=== PATIENT | female | born 1935 | race Caucasian/White ===

== ENCOUNTER → 2019-02-06 | Outpatient (REF) | payer MEDICARE ==
[2019-02-06 14:23] LABS: BASO # 0.1 10^3/uL (0.0-0.2); EOS # 0.3 10^3/uL (0.0-0.50); EOS % 2.7 % (0.0-3.0); HEMATOCRIT 36.5 % (36.0-47.0); LYMPH # 2.4 10^3/uL (1.5-4.5); LYMPH % 25.5 % (24.0-44.0); MEAN CORPUSCULAR HEMOGLOBIN 28.1 pg (27.0-33.0); MEAN CORPUSCULAR HGB CONC 30.1 g/dl (32.0-36.5); MEAN CORPUSCULAR VOLUME 93.1 fl (80.0-96.0); MONO # 1.2 10^3/uL (0.0-0.8); MONO % 12.7 % (0.0-5.0); NEUTROPHILS # 5.4 10^3/uL (1.8-7.7); NEUTROPHILS % 57.5 % (36.0-66.0); PLATELET COUNT, AUTOMATED 323 10^3/uL (150-450); RED BLOOD COUNT 3.92 10^6/uL (4.00-5.40); WHITE BLOOD COUNT 9.4 10^3/uL (4.0-10.0)
[2019-02-06 14:34] LABS: ALBUMIN 2.8 GM/DL (3.2-5.2); BILIRUBIN,TOTAL 0.5 MG/DL (0.2-1.0); CALCIUM LEVEL 9.1 MG/DL (8.8-10.2); CREATININE FOR GFR 1.2 MG/DL (0.55-1.30); GLOMERULAR FILTRATION RATE 45.9 (>32); POTASSIUM SERUM 4.9 MEQ/L (3.5-5.1); TOTAL PROTEIN 6.9 GM/DL (6.4-8.2)
== END ==
LOC: M LABDRAW1 09:08
PROVIDERS: ATTEND Nurse Practitioner Adult Health
DX: A41.9 Sepsis, unspecified organism (principal); R60.0 Localized edema

== ENCOUNTER → 2024-03-30 | Outpatient (REF) ==
[2024-03-30 12:01] LABS: HEMATOCRIT 40.6 % (36.0-47.0); HEMOGLOBIN 12.7 g/dl (12.0-15.5); MEAN CORPUSCULAR HEMOGLOBIN 30.3 pg (27.0-33.0); MEAN CORPUSCULAR HGB CONC 31.3 g/dl (32.0-36.5); MEAN CORPUSCULAR VOLUME 96.9 fl (80.0-96.0); PLATELET COUNT, AUTOMATED 319 10^3/uL (150-450); RED BLOOD COUNT 4.19 10^6/uL (4.00-5.40); WHITE BLOOD COUNT 8.2 10^3/uL (4.0-10.0)
[2024-03-30 12:41] LABS: BLOOD UREA NITROGEN 19 MG/DL (9-23); CALCIUM LEVEL 8.5 MG/DL (8.3-10.6); CARBON DIOXIDE LEVEL 21 MMOL/L (20-31); CHLORIDE LEVEL 105 MMOL/L (98-107); CREATININE FOR GFR 0.79 MG/DL (0.55-1.30); GLOMERULAR FILTRATION RATE > 60.0 (>32); GLUCOSE, FASTING 79 MG/DL (74-106); POTASSIUM SERUM 5.2 MMOL/L (3.5-5.1); SODIUM LEVEL 137 MMOL/L (136-145)
== END ==
PROVIDERS: ATTEND Physician Assistant
DX: N39.0 Urinary tract infection, site not specified (principal); Z16.21 Resistance to vancomycin

== ENCOUNTER → 2024-03-31 | Outpatient (REF) | PROVIDERS: ATTEND Physician Assistant | DX: L97.909 Non-pressure chronic ulcer of unspecified part of unspecified lower leg with unspecified severity (principal); Z53.8 Procedure and treatment not carried out for other reasons ==

== ENCOUNTER → 2024-03-31 | Outpatient (REF) | PROVIDERS: ATTEND Internal Medicine | DX: M85.832 Other specified disorders of bone density and structure, left forearm (principal); M79.89 Other specified soft tissue disorders ==

== ENCOUNTER → 2024-04-01 | Outpatient (REF) ==
[2024-04-01 11:24] LABS: HEMATOCRIT 37.9 % (36.0-47.0); MEAN CORPUSCULAR HEMOGLOBIN 30.2 pg (27.0-33.0); MEAN CORPUSCULAR HGB CONC 31.7 g/dl (32.0-36.5); MEAN CORPUSCULAR VOLUME 95.2 fl (80.0-96.0); PLATELET COUNT, AUTOMATED 515 10^3/uL (150-450); RED BLOOD COUNT 3.98 10^6/uL (4.00-5.40); WHITE BLOOD COUNT 8.6 10^3/uL (4.0-10.0)
[2024-04-01 11:33] LABS: ERYTHROCYTE SEDIMENTATION RATE 121 mm/hr (0-30)
[2024-04-01 11:51] LABS: BLOOD UREA NITROGEN 22 MG/DL (9-23); CALCIUM LEVEL 9.2 MG/DL (8.3-10.6); CARBON DIOXIDE LEVEL 28 MMOL/L (20-31); CHLORIDE LEVEL 106 MMOL/L (98-107); CREATININE FOR GFR 0.81 MG/DL (0.55-1.30); GLOMERULAR FILTRATION RATE > 60.0 (>32); GLUCOSE, FASTING 84 MG/DL (74-106); POTASSIUM SERUM 4.5 MMOL/L (3.5-5.1); SODIUM LEVEL 144 MMOL/L (136-145)
== END ==
PROVIDERS: ATTEND Physician Assistant
DX: L97.909 Non-pressure chronic ulcer of unspecified part of unspecified lower leg with unspecified severity (principal)

== ENCOUNTER → 2024-04-06 | Outpatient (REF) ==
[2024-04-06 09:22] LABS: HEMOGLOBIN 11.4 g/dl (12.0-15.5); MEAN CORPUSCULAR HEMOGLOBIN 29.8 pg (27.0-33.0); MEAN CORPUSCULAR HGB CONC 31.7 g/dl (32.0-36.5); MEAN CORPUSCULAR VOLUME 94.2 fl (80.0-96.0); PLATELET COUNT, AUTOMATED 225 10^3/uL (150-450); RED BLOOD COUNT 3.82 10^6/uL (4.00-5.40); WHITE BLOOD COUNT 8.4 10^3/uL (4.0-10.0)
[2024-04-06 09:49] LABS: BLOOD UREA NITROGEN 27 MG/DL (9-23); CALCIUM LEVEL 8.6 MG/DL (8.3-10.6); CARBON DIOXIDE LEVEL 32 MMOL/L (20-31); CHLORIDE LEVEL 102 MMOL/L (98-107); CREATININE FOR GFR 0.68 MG/DL (0.55-1.30); GLOMERULAR FILTRATION RATE > 60.0 (>32); GLUCOSE, FASTING 63 MG/DL (74-106); POTASSIUM SERUM 4.3 MMOL/L (3.5-5.1); SODIUM LEVEL 140 MMOL/L (136-145)
== END ==
PROVIDERS: ATTEND Physician Assistant
DX: N39.0 Urinary tract infection, site not specified (principal); Z16.21 Resistance to vancomycin

== ENCOUNTER → 2024-04-15 | Outpatient (REF) ==
[2024-04-15 10:16] LABS: HEMATOCRIT 34.8 % (36.0-47.0); HEMOGLOBIN 10.8 g/dl (12.0-15.5); MEAN CORPUSCULAR HEMOGLOBIN 29.5 pg (27.0-33.0); MEAN CORPUSCULAR VOLUME 95.1 fl (80.0-96.0); PLATELET COUNT, AUTOMATED 397 10^3/uL (150-450); RED BLOOD COUNT 3.66 10^6/uL (4.00-5.40); WHITE BLOOD COUNT 9.7 10^3/uL (4.0-10.0)
[2024-04-15 10:45] LABS: BLOOD UREA NITROGEN 25 MG/DL (9-23); CALCIUM LEVEL 8.9 MG/DL (8.3-10.6); CARBON DIOXIDE LEVEL 28 MMOL/L (20-31); CHLORIDE LEVEL 109 MMOL/L (98-107); CREATININE FOR GFR 0.69 MG/DL (0.55-1.30); GLOMERULAR FILTRATION RATE > 60.0 (>32); GLUCOSE, FASTING 90 MG/DL (74-106); POTASSIUM SERUM 4.8 MMOL/L (3.5-5.1); SODIUM LEVEL 145 MMOL/L (136-145)
== END ==
PROVIDERS: ATTEND Physician Assistant
DX: N39.0 Urinary tract infection, site not specified (principal); Z16.21 Resistance to vancomycin

== ENCOUNTER → 2024-05-06 | Outpatient (CLI) | payer MEDICARE | LOC: M SOG 07:49 | PROVIDERS: ATTEND Orthopaedic Surgery | DX: M25.561 Pain in right knee (principal); M17.11 Unilateral primary osteoarthritis, right knee ==

== ENCOUNTER → 2024-05-07 | Outpatient (REF) ==
[2024-05-07 19:48] LABS: C REACTIVE PROTEIN QUANTITATIV 13.8 MG/DL (<1.0)
[2024-05-07 19:49] LABS: URIC ACID 8.2 MG/DL (3.1-7.8)
== END ==
PROVIDERS: ATTEND Physician Assistant
DX: R22.32 Localized swelling, mass and lump, left upper limb (principal)

== ENCOUNTER → 2024-05-08 | Outpatient (REF) | PROVIDERS: ATTEND Internal Medicine | DX: M19.042 Primary osteoarthritis, left hand (principal); M79.89 Other specified soft tissue disorders ==

== ENCOUNTER → 2024-05-14 | Outpatient (REF) | PROVIDERS: ATTEND Internal Medicine | DX: R06.02 Shortness of breath (principal) ==

== ENCOUNTER → 2024-05-17 | Outpatient (REF) ==
[~2024-05-17] MED LIST: ACET-897 PO; ALLO100T PO; ATOR40TA75 PO; BISA10SU27 PR; CALC500T61 PO; CALC600T85 PO; CALC800P PO; CENT1TAB PO; CETI-24 PO; DICL100G10 TOP; ELIQ5TAB PO; FLEEENE12 PR; FURO20TA2 PO; LASI40TA9 PO; LOPE1CAP5 PO; MAGN400T2 PO; METH-1164 PO; METO75TA PO; MOM30SS2 PO; OMEG-28 PO; OMEP-173 PO; PEPT262S PO; POTA10CA70 PO; PREG200C2 PO; ROPI5TAB19 PO; TRIA1CR80 TOP; VITA100054 PO
== END ==
LOC: M LAB REF 18:15
PROVIDERS: ATTEND Internal Medicine
DX: R19.7 Diarrhea, unspecified (principal)

== ENCOUNTER 2024-05-18 10:44 | Observation (INO) | payer MEDICARE ==
[~2024-05-18] VITALS: Ht 167.6 cm; Wt 113.8 kg
[~2024-05-18 10:44] MED LIST changes: -ACET-897 PO; -ALLO100T PO; -ATOR40TA75 PO; -BISA10SU27 PR; -CALC500T61 PO; -CALC600T85 PO; -CALC800P PO; -CENT1TAB PO; -CETI-24 PO; -DICL100G10 TOP; -ELIQ5TAB PO; -FLEEENE12 PR; -FURO20TA2 PO; -LOPE1CAP5 PO; -MAGN400T2 PO; -METH-1164 PO; -METO75TA PO; -MOM30SS2 PO; -OMEG-28 PO; -OMEP-173 PO; -PEPT262S PO; -POTA10CA70 PO; -PREG200C2 PO; -ROPI5TAB19 PO; -TRIA1CR80 TOP; -VITA100054 PO
[2024-05-18 11:50] LABS: BASO % 0.1 % (0.0-1.0); EOS # 0.1 10^3/uL (0.0-0.5); HEMATOCRIT 34.3 % (36.0-47.0); HEMOGLOBIN 10.7 g/dl (12.0-15.5); LYMPH # 1.5 10^3/uL (1.5-5.0); LYMPH % 10.3 % (24.0-44.0); MEAN CORPUSCULAR HEMOGLOBIN 29.2 pg (27.0-33.0); MEAN CORPUSCULAR HGB CONC 31.2 g/dl (32.0-36.5); MEAN CORPUSCULAR VOLUME 93.5 fl (80.0-96.0); MONO # 1.4 10^3/uL (0.0-0.8); MONO % 9.8 % (2.0-8.0); NEUTROPHILS # 11.3 10^3/uL (1.5-8.5); NEUTROPHILS % 78.3 % (36.0-66.0); PLATELET COUNT, AUTOMATED 354 10^3/uL (150-450); RED BLOOD COUNT 3.67 10^6/uL (4.00-5.40); WHITE BLOOD COUNT 14.4 10^3/uL (4.0-10.0)
[2024-05-18 12:06] LABS: ALBUMIN 2.4 G/DL (3.2-5.2); BILIRUBIN,DIRECT 0.2 MG/DL (<0.4); BILIRUBIN,TOTAL 0.7 MG/DL (0.3-1.2); CALCIUM LEVEL 8.9 MG/DL (8.3-10.6); CREATININE FOR GFR 0.97 MG/DL (0.55-1.30); POTASSIUM SERUM 4.3 MMOL/L (3.5-5.1)
[2024-05-18 12:13] LABS: INR 1.29; PROTHROMBIN TIME 15.7 SECONDS (12.5-14.5)
[2024-05-18] MEDS ORDERED: ISOVUE-370 76% 100ML VIAL As Ordered ONE (13:01)
[2024-05-18] MEDS: NS 500 ML IV ONE (13:09)
[2024-05-18] MEDS ORDERED: ALLO100T PO (13:14)
[2024-05-18] MEDS ORDERED: CALC600T85 PO (13:14)
[2024-05-18] MEDS ORDERED: METO75TA PO (13:14)
[2024-05-18] MEDS ORDERED: ATOR40TA75 PO (13:14)
[2024-05-18] MEDS ORDERED: DICL100G10 TOP (13:14)
[2024-05-18] MEDS ORDERED: TRIA1CR80 TOP (13:14)
[2024-05-18] MEDS ORDERED: CALC800P PO (13:14)
[2024-05-18] MEDS ORDERED: MAGN400T2 PO (13:14)
[2024-05-18] MEDS ORDERED: CENT1TAB PO (13:14)
[2024-05-18] MEDS ORDERED: OMEG-28 PO (13:14)
[2024-05-18] MEDS ORDERED: VITA100054 PO (13:14)
[2024-05-18] MEDS ORDERED: METH-1164 PO (13:14)
[2024-05-18] MEDS ORDERED: ELIQ5TAB PO (13:14)
[2024-05-18] MEDS ORDERED: CETI-24 PO (13:14)
[2024-05-18] MEDS ORDERED: PREG200C2 PO (13:14)
[2024-05-18] MEDS ORDERED: POTA10CA70 PO (13:14)
[2024-05-18] MEDS ORDERED: FURO20TA2 PO (13:14)
[2024-05-18] MEDS ORDERED: OMEP-173 PO (13:14)
[2024-05-18] MEDS ORDERED: LOPE1CAP5 PO ×2 (13:23)
[2024-05-18] MEDS ORDERED: BISA10SU27 PR (13:23)
[2024-05-18] MEDS ORDERED: MOM30SS2 PO (13:23)
[2024-05-18] MEDS ORDERED: ACET-897 PO (13:23)
[2024-05-18] MEDS ORDERED: FLEEENE12 PR (13:23)
[2024-05-18] MEDS ORDERED: ROPI5TAB19 PO (13:23)
[2024-05-18] MEDS ORDERED: CALC500T61 PO (13:25)
[2024-05-18] MEDS ORDERED: HOME MED LIST COMPLETE! XX SCH (13:30)
[2024-05-18 17:03] LABS: C REACTIVE PROTEIN QUANTITATIV 16.7 MG/DL (<1.0)
[2024-05-18 17:17] LABS: PROCALCITONIN 0.09 ng/ml
[2024-05-18 17:46] VITALS: BP 116/60; O2SAT 94
[2024-05-18] MEDS: ATORVASTATIN 20 MG TAB PO SCH (17:46)
[2024-05-18] MEDS: CETIRIZINE (ZyrTEC) 10 MG TAB PO SCH (17:46)
[2024-05-18 18:45] VITALS: BP 97/74; TEMP 97.9; O2SAT 92
[2024-05-18] MEDS ORDERED: NYSTATIN 100,000 UNITS/GM TOPICAL PWD 15GM TOP PRN (19:05)
[2024-05-18 19:46] VITALS: BP 97/59; TEMP 97.7; O2SAT 97
[2024-05-18] MEDS: METOPROLOL TART 25 MG TABLET PO SCH (20:20)
[2024-05-18] MEDS: PREGABALIN 100 MG CAP (LYRICA) PO SCH (20:27)
[2024-05-18] MEDS: methocarbamoL 500 MG TAB PO SCH (20:27)
[2024-05-18] MEDS: ACETAMINOPHEN 500 MG TAB PO SCH (20:27)
[2024-05-18] MEDS: rOPINIRole 0.25 MG TAB(REQUIP) PO SCH (20:27)
[2024-05-18] MEDS: TRIAMCINOLONE ACET 0.1% CREAM 15GM TOP SCH (20:28)
[2024-05-18] MEDS: VITAMIN A & D OINTMENT 42.5GM TOP SCH (20:28)
[2024-05-19 03:43] VITALS: BP 95/59; TEMP 96.6; O2SAT 94
[2024-05-19 07:43] LABS: HEMATOCRIT 34.4 % (36.0-47.0); HEMOGLOBIN 10.9 g/dl (12.0-15.5); MEAN CORPUSCULAR HEMOGLOBIN 29.8 pg (27.0-33.0); MEAN CORPUSCULAR HGB CONC 31.7 g/dl (32.0-36.5); PLATELET COUNT, AUTOMATED 285 10^3/uL (150-450); RED BLOOD COUNT 3.66 10^6/uL (4.00-5.40); WHITE BLOOD COUNT 11.6 10^3/uL (4.0-10.0)
[2024-05-19 08:11] LABS: BLOOD UREA NITROGEN 23 MG/DL (9-23); CALCIUM LEVEL 8.6 MG/DL (8.3-10.6); CARBON DIOXIDE LEVEL 27 MMOL/L (20-31); CHLORIDE LEVEL 107 MMOL/L (98-107); CREATININE FOR GFR 0.84 MG/DL (0.55-1.30); GLOMERULAR FILTRATION RATE > 60.0 (>32); GLUCOSE, FASTING 92 MG/DL (74-106); POTASSIUM SERUM 3.9 MMOL/L (3.5-5.1); SODIUM LEVEL 143 MMOL/L (136-145)
[2024-05-19] MEDS: allopurinoL 100 MG TAB PO SCH (08:38)
[2024-05-19] MEDS: OMEPRAZOLE 20MG CAP PO SCH (08:39)
[2024-05-19] MEDS ORDERED: POTASSIUM CHLORIDE 10MEQ SR TABLET PO SCH (09:00)
[2024-05-19] MEDS ORDERED: FUROSEMIDE 20 MG TAB PO SCH (09:00)
[2024-05-19] MEDS ORDERED: PEPT262S PO (11:32)
[2024-05-19 12:31] VITALS: BP 88/52; TEMP 97.5; O2SAT 92
[2024-05-19] MEDS: PINK BISMUTH SUSP 524MG/30ML ORAL SYRINGE PO SCH (13:15)
[2024-05-19 20:00] VITALS: BP 102/58; TEMP 97.9; O2SAT 92
[2024-05-20 04:00] VITALS: BP 138/78; TEMP 97.7; O2SAT 97
[2024-05-20] MEDS: LOPERAMIDE 2 MG CAPLET PO ONE (08:08)
[2024-05-20 10:43] VITALS: BP 104/64
== END 2024-05-20 11:45 ==
LOC: M ED 10:44 → M ED INP 16:31 → M MS5PR 18:25
PROVIDERS: ADMIT Internal Medicine; ATTEND Student in an Organized Health Care Education/Training Program
DX: A08.39 Other viral enteritis (principal); K92.2 Gastrointestinal hemorrhage, unspecified; A04.71 Enterocolitis due to Clostridium difficile, recurrent; Z79.01 Long term (current) use of anticoagulants; D62 Acute posthemorrhagic anemia; I48.0 Paroxysmal atrial fibrillation; K86.2 Cyst of pancreas; I50.9 Heart failure, unspecified; I73.9 Peripheral vascular disease, unspecified; E78.5 Hyperlipidemia, unspecified; I11.9 Hypertensive heart disease without heart failure; E66.01 Morbid (severe) obesity due to excess calories; D68.61 Antiphospholipid syndrome; Z79.899 Other long term (current) drug therapy; Z88.8 Allergy status to other drugs, medicaments and biological substances; Z88.1 Allergy status to other antibiotic agents
CPT/HCPCS: 36415; 71045; 74177; 80048; 80076; 83605; 83690; 83880; 84145; 85025; 85027; 85610; 86140; 86850; 86900; 86901; 87426; 93005; 93041; 94760; 96374; 99285; G0378; Q9967

== ENCOUNTER → 2024-05-20 | Outpatient (REF) ==
[~2024-05-20] MED LIST changes: +ACET-897 PO; +ALLO100T PO; +ATOR40TA75 PO; +BISA10SU27 PR; +CALC500T61 PO; +CALC600T85 PO; +CALC800P PO; +CENT1TAB PO; +CETI-24 PO; +DICL100G10 TOP; +ELIQ5TAB PO; +FLEEENE12 PR; +FURO20TA2 PO; +LOPE1CAP5 PO; +MAGN400T2 PO; +METH-1164 PO; +METO75TA PO; +MOM30SS2 PO; +OMEG-28 PO; +OMEP-173 PO; +PEPT262S PO; +POTA10CA70 PO; +PREG200C2 PO; +ROPI5TAB19 PO; +TRIA1CR80 TOP; +VITA100054 PO
== END ==
PROVIDERS: ATTEND Internal Medicine
DX: Z53.8 Procedure and treatment not carried out for other reasons (principal)

== ENCOUNTER → 2024-05-26 | Outpatient (REF) | payer MEDICARE | PROVIDERS: ATTEND Physician Assistant | DX: I50.9 Heart failure, unspecified (principal) ==

== ENCOUNTER → 2024-05-27 | Outpatient (REF) | payer MEDICARE ==
[2024-05-27 09:11] LABS: HEMOGLOBIN 10.9 g/dl (12.0-15.5); MEAN CORPUSCULAR HEMOGLOBIN 29.5 pg (27.0-33.0); MEAN CORPUSCULAR HGB CONC 31.1 g/dl (32.0-36.5); MEAN CORPUSCULAR VOLUME 94.9 fl (80.0-96.0); PLATELET COUNT, AUTOMATED 366 10^3/uL (150-450); RED BLOOD COUNT 3.69 10^6/uL (4.00-5.40); WHITE BLOOD COUNT 8.4 10^3/uL (4.0-10.0)
[2024-05-27 09:38] LABS: BLOOD UREA NITROGEN 24 MG/DL (9-23); CALCIUM LEVEL 9.2 MG/DL (8.3-10.6); CARBON DIOXIDE LEVEL 26 MMOL/L (20-31); CHLORIDE LEVEL 109 MMOL/L (98-107); CREATININE FOR GFR 0.78 MG/DL (0.55-1.30); GLOMERULAR FILTRATION RATE > 60.0 (>32); GLUCOSE, FASTING 93 MG/DL (74-106); SODIUM LEVEL 142 MMOL/L (136-145)
== END ==
PROVIDERS: ATTEND Physician Assistant
DX: I50.9 Heart failure, unspecified (principal)

== ENCOUNTER → 2024-06-01 | Outpatient (REF) | payer MEDICARE ==
[2024-06-01 11:33] LABS: BLOOD UREA NITROGEN 26 MG/DL (9-23); CALCIUM LEVEL 8.5 MG/DL (8.3-10.6); CARBON DIOXIDE LEVEL 30 MMOL/L (20-31); CHLORIDE LEVEL 102 MMOL/L (98-107); CREATININE FOR GFR 0.91 MG/DL (0.55-1.30); GLOMERULAR FILTRATION RATE > 60.0 (>32); GLUCOSE, FASTING 165 MG/DL (74-106); POTASSIUM SERUM 4.1 MMOL/L (3.5-5.1); SODIUM LEVEL 140 MMOL/L (136-145)
== END ==
PROVIDERS: ATTEND Physician Assistant
DX: I50.9 Heart failure, unspecified (principal)

== ENCOUNTER → 2024-06-08 | Outpatient (REF) | payer MEDICARE ==
[2024-06-08 12:36] LABS: HEMATOCRIT 34.7 % (36.0-47.0); HEMOGLOBIN 10.6 g/dl (12.0-15.5); MEAN CORPUSCULAR HEMOGLOBIN 28.5 pg (27.0-33.0); MEAN CORPUSCULAR HGB CONC 30.5 g/dl (32.0-36.5); MEAN CORPUSCULAR VOLUME 93.3 fl (80.0-96.0); PLATELET COUNT, AUTOMATED 318 10^3/uL (150-450); RED BLOOD COUNT 3.72 10^6/uL (4.00-5.40); WHITE BLOOD COUNT 7.6 10^3/uL (4.0-10.0)
[2024-06-08 12:55] LABS: BLOOD UREA NITROGEN 26 MG/DL (9-23); CALCIUM LEVEL 8.9 MG/DL (8.3-10.6); CARBON DIOXIDE LEVEL 29 MMOL/L (20-31); CHLORIDE LEVEL 105 MMOL/L (98-107); CREATININE FOR GFR 0.85 MG/DL (0.55-1.30); GLOMERULAR FILTRATION RATE > 60.0 (>32); GLUCOSE, FASTING 104 MG/DL (74-106); POTASSIUM SERUM 4.5 MMOL/L (3.5-5.1); SODIUM LEVEL 141 MMOL/L (136-145)
== END ==
PROVIDERS: ATTEND Physician Assistant
DX: I50.9 Heart failure, unspecified (principal)

== ENCOUNTER → 2024-06-17 | Outpatient (REF) | payer MEDICARE | PROVIDERS: ATTEND Internal Medicine | DX: Z53.8 Procedure and treatment not carried out for other reasons (principal) ==

== ENCOUNTER → 2024-06-29 | Outpatient (REF) ==
[2024-06-29 09:31] LABS: HEMATOCRIT 42.4 % (36.0-47.0); HEMOGLOBIN 12.9 g/dl (12.0-15.5); MEAN CORPUSCULAR HEMOGLOBIN 28.5 pg (27.0-33.0); MEAN CORPUSCULAR HGB CONC 30.4 g/dl (32.0-36.5); MEAN CORPUSCULAR VOLUME 93.8 fl (80.0-96.0); PLATELET COUNT, AUTOMATED 299 10^3/uL (150-450); RED BLOOD COUNT 4.52 10^6/uL (4.00-5.40); WHITE BLOOD COUNT 7.2 10^3/uL (4.0-10.0)
[2024-06-29 10:16] LABS: CALCIUM LEVEL 9.7 MG/DL (8.3-10.6); POTASSIUM SERUM 4.7 MMOL/L (3.5-5.1)
== END ==
PROVIDERS: ATTEND Internal Medicine
DX: N39.0 Urinary tract infection, site not specified (principal); Z16.21 Resistance to vancomycin

== ENCOUNTER → 2024-07-01 | Outpatient (REF) ==
[2024-07-01 14:55] LABS: HEMATOCRIT 37.2 % (36.0-47.0); HEMOGLOBIN 11.7 g/dl (12.0-15.5); MEAN CORPUSCULAR HEMOGLOBIN 28.9 pg (27.0-33.0); MEAN CORPUSCULAR HGB CONC 31.5 g/dl (32.0-36.5); MEAN CORPUSCULAR VOLUME 91.9 fl (80.0-96.0); PLATELET COUNT, AUTOMATED 340 10^3/uL (150-450); RED BLOOD COUNT 4.05 10^6/uL (4.00-5.40); WHITE BLOOD COUNT 8.8 10^3/uL (4.0-10.0)
[2024-07-01 15:14] LABS: ERYTHROCYTE SEDIMENTATION RATE 77 mm/hr (0-30)
[2024-07-01 15:17] LABS: C REACTIVE PROTEIN QUANTITATIV 2.7 MG/DL (<1.0)
[2024-07-01 15:18] LABS: CALCIUM LEVEL 9.5 MG/DL (8.3-10.6); CREATININE FOR GFR 1.08 MG/DL (0.55-1.30); GLOMERULAR FILTRATION RATE 51.2 (>32); POTASSIUM SERUM 4.9 MMOL/L (3.5-5.1)
== END ==
PROVIDERS: ATTEND Physician Assistant
DX: R07.9 Chest pain, unspecified (principal)

== ENCOUNTER → 2024-07-06 | Outpatient (REF) | PROVIDERS: ATTEND Internal Medicine | DX: R07.9 Chest pain, unspecified (principal); I51.7 Cardiomegaly; I70.0 Atherosclerosis of aorta ==

== ENCOUNTER → 2024-07-06 | Outpatient (REF) ==
[2024-07-06 17:37] LABS: HEMATOCRIT 38.5 % (36.0-47.0); HEMOGLOBIN 12.2 g/dl (12.0-15.5); MEAN CORPUSCULAR HEMOGLOBIN 28.7 pg (27.0-33.0); MEAN CORPUSCULAR HGB CONC 31.7 g/dl (32.0-36.5); MEAN CORPUSCULAR VOLUME 90.6 fl (80.0-96.0); PLATELET COUNT, AUTOMATED 325 10^3/uL (150-450); RED BLOOD COUNT 4.25 10^6/uL (4.00-5.40); WHITE BLOOD COUNT 8.6 10^3/uL (4.0-10.0)
[2024-07-06 17:44] LABS: ERYTHROCYTE SEDIMENTATION RATE 94 mm/hr (0-30)
[2024-07-06 17:56] LABS: CK-MB VALUE MASS < 1.0 NG/ML (<3.6)
[2024-07-06 17:58] LABS: BLOOD UREA NITROGEN 34 MG/DL (9-23); CALCIUM LEVEL 9.3 MG/DL (8.3-10.6); CARBON DIOXIDE LEVEL 26 MMOL/L (20-31); CHLORIDE LEVEL 104 MMOL/L (98-107); CREATININE FOR GFR 1.01 MG/DL (0.55-1.30); GLOMERULAR FILTRATION RATE 55.3 (>32); GLUCOSE, FASTING 88 MG/DL (74-106); SODIUM LEVEL 139 MMOL/L (136-145)
[2024-07-06 17:59] LABS: CPK CREATINE PHOSPHOKINASE 27 U/L (34-145)
== END ==
PROVIDERS: ATTEND Physician Assistant
DX: R07.9 Chest pain, unspecified (principal)

== ENCOUNTER → 2024-07-08 | Outpatient (REF) ==
[2024-07-08 13:02] LABS: HEMATOCRIT 37.9 % (36.0-47.0); HEMOGLOBIN 12.1 g/dl (12.0-15.5); MEAN CORPUSCULAR HEMOGLOBIN 28.5 pg (27.0-33.0); MEAN CORPUSCULAR HGB CONC 31.9 g/dl (32.0-36.5); MEAN CORPUSCULAR VOLUME 89.2 fl (80.0-96.0); PLATELET COUNT, AUTOMATED 322 10^3/uL (150-450); RED BLOOD COUNT 4.25 10^6/uL (4.00-5.40); WHITE BLOOD COUNT 8.8 10^3/uL (4.0-10.0)
[2024-07-08 13:28] LABS: CALCIUM LEVEL 9.4 MG/DL (8.3-10.6); CREATININE FOR GFR 1.14 MG/DL (0.55-1.30); GLOMERULAR FILTRATION RATE 48.1 (>32); POTASSIUM SERUM 4.8 MMOL/L (3.5-5.1)
== END ==
PROVIDERS: ATTEND Internal Medicine
DX: N39.0 Urinary tract infection, site not specified (principal); Z16.21 Resistance to vancomycin

== ENCOUNTER → 2024-07-14 | Outpatient (REF) | payer MEDICARE | PROVIDERS: ATTEND Nurse Practitioner Adult Health | DX: J90 Pleural effusion, not elsewhere classified (principal) ==

== ENCOUNTER → 2024-07-15 | Outpatient (REF) ==
[2024-07-15 09:13] LABS: HEMATOCRIT 39.1 % (36.0-47.0); HEMOGLOBIN 12.4 g/dl (12.0-15.5); MEAN CORPUSCULAR HEMOGLOBIN 28.7 pg (27.0-33.0); MEAN CORPUSCULAR HGB CONC 31.7 g/dl (32.0-36.5); MEAN CORPUSCULAR VOLUME 90.5 fl (80.0-96.0); PLATELET COUNT, AUTOMATED 315 10^3/uL (150-450); RED BLOOD COUNT 4.32 10^6/uL (4.00-5.40); WHITE BLOOD COUNT 7.2 10^3/uL (4.0-10.0)
[2024-07-15 09:36] LABS: CALCIUM LEVEL 9.8 MG/DL (8.3-10.6); CREATININE FOR GFR 1.1 MG/DL (0.55-1.30); GLOMERULAR FILTRATION RATE 50.1 (>32); POTASSIUM SERUM 4.1 MMOL/L (3.5-5.1)
== END ==
PROVIDERS: ATTEND Physician Assistant
DX: I50.9 Heart failure, unspecified (principal)

== ENCOUNTER → 2024-07-22 | Outpatient (REF) | payer MEDICARE ==
[2024-07-22 08:52] LABS: HEMATOCRIT 40.5 % (36.0-47.0); HEMOGLOBIN 13.5 g/dl (12.0-15.5); MEAN CORPUSCULAR HEMOGLOBIN 29.7 pg (27.0-33.0); MEAN CORPUSCULAR HGB CONC 33.3 g/dl (32.0-36.5); MEAN CORPUSCULAR VOLUME 89.2 fl (80.0-96.0); PLATELET COUNT, AUTOMATED 164 10^3/uL (150-450); RED BLOOD COUNT 4.54 10^6/uL (4.00-5.40); WHITE BLOOD COUNT 13.3 10^3/uL (4.0-10.0)
[2024-07-22 09:27] LABS: CREATININE FOR GFR 1.02 MG/DL (0.55-1.30); GLOMERULAR FILTRATION RATE 54.7 (>32); POTASSIUM SERUM 4.3 MMOL/L (3.5-5.1)
== END ==
PROVIDERS: ATTEND Internal Medicine
DX: I50.9 Heart failure, unspecified (principal)

== ENCOUNTER → 2024-07-29 | Outpatient (REF) ==
[2024-07-29 10:10] LABS: ALKALINE PHOSPHATASE 84 U/L (46-116); ALT/SGPT < 9 U/L (7.0-40); AST/SGOT 17 U/L (<34); BILIRUBIN,TOTAL 0.5 MG/DL (0.3-1.2); BLOOD UREA NITROGEN 48 MG/DL (9-23); CALCIUM LEVEL 9.8 MG/DL (8.3-10.6); CARBON DIOXIDE LEVEL 25 MMOL/L (20-31); CHLORIDE LEVEL 108 MMOL/L (98-107); GLUCOSE, FASTING 111 MG/DL (74-106); MAGNESIUM LEVEL 1.6 MG/DL (1.8-2.4); POTASSIUM SERUM 4.6 MMOL/L (3.5-5.1); SODIUM LEVEL 140 MMOL/L (136-145); TOTAL PROTEIN 6.9 G/DL (5.7-8.2)
[2024-07-29 10:12] LABS: THYROID STIMULATING HORMONE 0.964 uIU/ML (0.55-4.78); VITAMIN B12 LEVEL 535 PG/ML (211-911)
[2024-07-29 11:47] LABS: HEMOGLOBIN A1c 5.6 % (4.0-6.0)
== END ==
PROVIDERS: ATTEND Physician Assistant
DX: R20.2 Paresthesia of skin (principal)

== ENCOUNTER → 2024-08-07 | Outpatient (REF) | payer MEDICARE ==
[2024-08-07 08:14] LABS: HEMATOCRIT 42.4 % (36.0-47.0); HEMOGLOBIN 13.8 g/dl (12.0-15.5); MEAN CORPUSCULAR HGB CONC 32.5 g/dl (32.0-36.5); MEAN CORPUSCULAR VOLUME 89.1 fl (80.0-96.0); PLATELET COUNT, AUTOMATED 278 10^3/uL (150-450); RED BLOOD COUNT 4.76 10^6/uL (4.00-5.40); WHITE BLOOD COUNT 8.1 10^3/uL (4.0-10.0)
[2024-08-07 08:43] LABS: CREATININE FOR GFR 1.05 MG/DL (0.55-1.30); GLOMERULAR FILTRATION RATE 52.9 (>32); POTASSIUM SERUM 4.5 MMOL/L (3.5-5.1)
[2024-08-07 08:44] LABS: THYROID STIMULATING HORMONE 1.076 uIU/ML (0.55-4.78); TOTAL 25(OH) VITAMIN D 76.6 NG/ML (20.0-100.0)
[2024-08-07 08:45] LABS: FOLATE 21.22 NG/ML (>5.4)
[2024-08-07 09:26] LABS: HEMOGLOBIN A1c 5.9 % (4.0-6.0)
== END ==
PROVIDERS: ATTEND Physician Assistant
DX: Z79.899 Other long term (current) drug therapy (principal)

== ENCOUNTER → 2024-08-17 | Outpatient (REF) | payer MEDICARE | PROVIDERS: ATTEND Internal Medicine | DX: I50.9 Heart failure, unspecified (principal); Z53.9 Procedure and treatment not carried out, unspecified reason ==